=== PATIENT | male | born 1990 | race Caucasian/White ===

== ENCOUNTER 2019-07-31 00:39 | Emergency (ER) | payer BC, SELFPAY ==
[2019-07-31] MEDS ORDERED: Ketorolac Tromethamine 60 MG/2 ML VIAL ONE (00:51)
[2019-07-31] MEDS ORDERED: Morphine 4 MG/ML VIAL ONE (00:51)
[2019-07-31] MEDS ORDERED: Acetaminophen 500 MG TAB ONE (00:51)
[2019-07-31] MEDS ORDERED: Clindamycin 150 MG CAP ONE (01:00)
== END 2019-07-31 01:00 | disposition home or self-care (01) ==
LOC: MADERS 00:39
DX: K04.7 Periapical abscess without sinus (principal); K02.9 Dental caries, unspecified; F17.210 Nicotine dependence, cigarettes, uncomplicated
CPT/HCPCS: 96372; 99282; J1885; J2270

== ENCOUNTER 2021-07-11 16:20 | Emergency (ER) | payer SELFPAY ==
[~2021-07-11 16:20] MED LIST: Iopamidol 370 76% 100 ML VIAL ONE
[2021-07-11] MEDS ORDERED: Sodium Chloride 0.9% 2,000 ML ONE (17:36)
[2021-07-11] MEDS ORDERED: Ondansetron PF 4 MG/2 ML Vial ONE (17:36)
[2021-07-11] MEDS ORDERED: Morphine 4 MG/ML VIAL ONE (17:36)
[2021-07-11] MEDS ORDERED: diphenhydrAMINE 50 MG/ML VIAL ONE (17:36)
[2021-07-11] MEDS ORDERED: Sodium Chloride 0.9% 200 ML ONE (17:36)
[2021-07-11] MEDS ORDERED: Sodium Chloride 0.9% 250 ML 250 ML ONE (17:36)
[2021-07-11] MEDS ORDERED: Famotidine/PF 20 mg/2ml Vial ONE (17:37)
[2021-07-11] MEDS ORDERED: methylPREDNISolone Sod Succ/PF 125 MG/2 ML VIAL ONE (17:37)
[2021-07-11] MEDS ORDERED: Ampicillin 2 GM VIAL ONE (17:37)
[2021-07-11 17:40] LABS: #Basophils 0.1 thou/uL (0.0-0.2); #Lymphocytes 2.1 thou/uL (1.20-3.40); #Neutrophils 8.4 thou/uL (1.40-6.50); %Basophils 0.6 % (0.0-1.0); %Eosinophils 0.4 % (0.0-10.0); %Lymphocytes 18.1 % (21.0-51.0); %Monocytes 8.3 % (0.0-10.0); %Neutrophils 72.6 % (42.0-75.0); Hemoglobin 15.3 g/dL (14.0-18.0); Mean Corpuscular HGB CONC 32.5 g/dL (32.0-36.0); Mean Corpuscular Hemoglobin 28.6 pg (27.0-31.0); Mean Corpuscular Volume 88.2 fL (78.0-98.0); Mean Platelet Volume 8.9 fL (7.4-10.4); Platelet Count 196 thou/uL (130-400); RBC Distribution Width 12.4 % (11.5-14.5); Red Blood Cell (RBC) Count 5.32 mill/uL (4.70-6.10); White Blood Cell (WBC) Count 11.6 thou/uL (4.8-10.8)
[2021-07-11 17:55] LABS: ALT (SGPT) 18 U/L (8-55); AST (SGOT) 16 U/L (5-34); Albumin 4.2 g/dL (3.5-5.0); Alkaline Phosphatase 70 U/L (40-110); Anion Gap 15 mmol/L (10-20); BUN (Urea Nitrogen) 12 mg/dL (8.9-20.6); Bilirubin, Total 0.6 mg/dL (0.2-1.2); Calc. Creatinine Clearance 0 mL/min (70-130); Carbon Dioxide 27 mmol/L (22-29); Chloride 102 mmol/L (98-107); Globulin 2.9 g/dL (2.4-3.5); Glucose 91 mg/dL (70-105); Protein, Total 7.1 g/dL (6.0-8.3); Sodium 140 mmol/L (136-145)
== END 2021-07-11 19:49 | disposition home or self-care (01) ==
LOC: MADERS 16:20
DX: K04.7 Periapical abscess without sinus (principal); L03.211 Cellulitis of face; K02.9 Dental caries, unspecified; F17.210 Nicotine dependence, cigarettes, uncomplicated
CPT/HCPCS: 70487; 80053; 83605; 85025; 87040; 96365; 96366; 96375; J0290; J1200; J2270; J2405; J2930; J3490; J7050; Q9967; S0028

== ENCOUNTER 2022-02-21 18:23 | Emergency (ER) | payer SELFPAY | END 2022-02-21 19:49 | disposition left against medical advice (07) | LOC: MADERS 18:23 | DX: Z53.21 Procedure and treatment not carried out due to patient leaving prior to being seen by health care provider (principal) ==